=== PATIENT | male | born 1985 | race Two or more races ===

== ENCOUNTER 2017-06-27 23:23 | Emergency (ER) | payer OTHER ==
[~2017-06-27] VITALS: Ht 157.5 cm; Wt 63.5 kg
[2017-06-27 23:50] VITALS: BP 114/79
[2017-06-28] MEDS ORDERED: IBUPROFEN600 MG ORAL (00:39)
--- NOTE | 2017-06-28 00:40 | Emergency Room Report ---
History of Present Illness General Chief Complaint: Pain Source: Patient Present Illness HPI Is a 32-year-old male with no past medical history. He presents with chief complaint of back pain. At work a cart with water hit him in the back. This occurred this afternoon. No loss of consciousness. Now increasing pain. Worse with movement. Pain is 7/10. Allergies: Coded Allergies: No Known Allergies (Unverified , 06/27/17) Patient History Past Medical History: see triage record, old chart reviewed Past Surgical History: none Pertinent Family History: none Social History: Denies: smoking Immunizations: other Reviewed Nursing Documentation: PMH: Agreed, PSxH: Agreed Nursing Documentation-PMH Past Medical History: No Stated History Review of Systems Eye: Denies: eye pain, blurred vision ENT: Denies: ear pain, nose congestion, throat swelling Respiratory: Denies: cough, shortness of breath Cardiovascular: Denies: chest pain, palpitations Gastrointestinal: Denies: abdominal pain, diarrhea, nausea, vomiting Musculoskeletal: Reports: back pain, Denies: joint pain Skin: Denies: rash Neurological: Denies: headache, numbness Endocrine: Denies: increased thirst, increased urine Hematologic/Lymphatic: Denies: easy bruising All Other Systems: negative except mentioned in HPI Physical Exam Vital Signs Date Time Temp Pulse Resp B/P (MAP) Pulse Ox O2 Delivery O2 Flow Rate FiO2 06/27/17 23:47 98.1 90 15 114/79 100 Room Air vitals normal Sp02 EP Interpretation: reviewed, normal General Appearance: well appearing, no apparent distress, alert Head: normocephalic, atraumatic Eyes: bilateral eye PERRL, bilateral eye EOMI ENT: hearing grossly normal, normal pharynx Neck: full range of motion, supple, no meningismus Respiratory: chest non-tender, lungs clear, normal breath sounds Cardiovascular #1: regular rate, rhythm, no murmur Gastrointestinal: normal bowel sounds, non tender, no mass, no organomegaly, no bruit, non-distended Musculoskeletal: back normal - Lower lumbar tender, gait/station normal, normal range of motion Psychiatric: mood/affect normal Skin: warm/dry Medical Decision Making Diagnostic Impression: Primary Impression: Lumbar contusion Qualified Codes: S30.0XXA - Contusion of lower back and pelvis, initial encounter ER Course He presents with lumbar tenderness from contusion. No fracture dislocation. Other X-Ray Diagnostic Results Other X-Ray Diagnostic Results : X-Ray ordered: xr lumbar spine # of Views/Limited Vs Complete: 4 View Indication: Pain EP Interpretation: Yes Interpretation: no dislocation, no soft tissue swelling, no fractures Impression: No acute disease Electronically Signed by: Electronically signed by Christopher Ramirez MD Last Vital Signs Date Time Temp Pulse Resp B/P (MAP) Pulse Ox O2 Delivery O2 Flow Rate FiO2 06/27/17 23:50 98.1 90 15 114/79 100 Room Air Status: improved Disposition: HOME, SELF-CARE Condition: Stable Scripts Ibuprofen* (MOTRIN*) 600 Mg Tablet 600 MG ORAL Q8H Y for For Pain, #30 TAB 0 Refills Prov: CHRISTOPHER RAMIREZ M.D. 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 Return if worse. CHRISTOPHER RAMIREZ M.D. Jun 28, 2017 00:40
[2017-06-28 00:45] VITALS: BP 125/74
--- NOTE | 2017-06-28 11:44 | Diagnostic Imaging Report ---
Indication: TRAUMA, pain Technique: 3 views of the lumbar spine Comparison: None Findings:Vertebral body heights are preserved. Disc spaces are preserved. Pedicles are intact. Sacral arches are preserved. Sacroiliac joint spaces are preserved Impression:Negative
== END 2017-06-28 00:45 | disposition home or self-care (01) ==
LOC: EMR 23:59
DX: S30.0XXA Contusion of lower back and pelvis, initial encounter (principal); W22.8XXA Striking against or struck by other objects, initial encounter; Y92.69 Other specified industrial and construction area as the place of occurrence of the external cause; Y99.0 Civilian activity done for income or pay
CPT/HCPCS: 72020; 99283